=== PATIENT | male | born 1985 | race Caucasian/White ===

== ENCOUNTER → 2024-09-18 | Outpatient (CLI) | payer BC, SELFPAY ==
--- NOTE | 2024-09-18 15:38 | XR_ITS ---
Examination: MRI thoracic spine without contrast. Date and time of exam: September 18, 2024 1602 hours Comparison August 29, 2022 INDICATIONS: Mid back pain for years with spasms Technique: Multiple sagittal and axial images of the thoracic spine have been obtained. T1 weighted localizer, sagittal T2 weighted images, TR 30-50, TE 148, T1 weighted sagittal images, TR 650, TE 14, T2-weighted transverse images, TR 6770, TE 142 Findings: Mild kyphosis dorsal spine secondary to chronic wedging mid dorsal vertebral bodies No acute thoracic fracture Normal marrow signal thoracic vertebral bodies Diffuse thoracic disc desiccation and mild to moderate diffuse thoracic disc narrowing Lower thoracic levoscoliosis 12 degrees Axial images demonstrate no focal thoracic disc protrusion No impingement upon the thoracic cord Impression: [id number] diffuse thoracic degenerative disc disease No significant acquired spinal stenosis
== END | disposition home or self-care (01) ==
LOC: SMRI 15:23
PROVIDERS: PCP Nurse Practitioner Family; Referring Provider Nurse Practitioner Family; Visit Provider Nurse Practitioner Family
DX: M51.34 Other intervertebral disc degeneration, thoracic region (principal)
CPT/HCPCS: 72146